=== PATIENT | female | born 1960 | race Caucasian/White ===

== ENCOUNTER 2021-01-29 13:50 | Inpatient (IN) | payer BC ==
[~2021-01-29] VITALS: Ht 170.2 cm; Wt 86.3 kg
[2021-01-29] MEDS ORDERED: normal saline 1000ML IV soln IVB ONE (16:35)
[2021-01-29] MEDS ORDERED: ondansetron/PF 4mg/2ml inj IV ONE (16:35)
[2021-01-29] MEDS ORDERED: morphine 4 MG/ML inj SYRINge IV ONE ×2 (16:35→19:20)
[2021-01-29] MEDS ORDERED: iohexol 300mg/ml 100ml inj. ONE (17:47)
[2021-01-29 18:06] LABS: BASOPHILS % (AUTO) 0.2 % (0-1); EOSINOPHILS % (AUTO) 0.3 % (0-6); HEMOGLOBIN 12.6 g/dl (12.0-16.0); LYMPHOCYTES # (AUTO) 0.7 X10'3 (1.1-4.8); LYMPHOCYTES % (AUTO) 8.5 % (21-51); MEAN CORPUSCULAR HEMOGLOBIN 32.3 PG (27.0-31.0); MEAN CORPUSCULAR HGB CONC 34.2 g/dL (33.0-36.5); MEAN CORPUSCULAR VOLUME 94.6 FL (78-98); MEAN PLATELET VOLUME 8.4 FL (7.4-10.4); MONOCYTES # (AUTO) 0.8 X10'3 (0-0.9); NEUTROPHILS # (AUTO) 7.1 X10'3 (1.8-7.7); PARTIAL THROMBOPLASTIN TIME 26 SECONDS (22-32); PLATELET COUNT 285 X10'3 (140-440); RED CELL DISTRIBUTION WIDTH 13.4 % (11.5-14.5); WHITE BLOOD COUNT 8.6 X10'3 (4.5-11.0)
[2021-01-29 18:14] LABS: ALANINE AMINOTRANSFERASE 446 U/L (12-78); ALBUMIN 3.2 G/DL (3.4-5.0); ALBUMIN/GLOBULIN RATIO 0.8 (1.1-1.5); ALKALINE PHOSPHATASE 290 IU/L (46-116); ANION GAP 8 (8-16); ASPARTATE AMINO TRANSFERASE 141 U/L (10-37); BILIRUBIN,TOTAL 3.8 MG/DL (0.1-1.0); BLOOD UREA NITROGEN 13 MG/DL (7-18); BUN/CREATININE RATIO 15.7 (6.6-38.0); CALCIUM 8.4 MG/DL (8.5-10.1); CHLORIDE 106 MMOL/L (99-107); CREATININE 0.83 MG/DL (0.40-0.90); GLUCOSE 103 MG/DL (70-104); LIPASE 997 U/L (73-393); POTASSIUM 3.1 MMOL/L (3.5-5.1); SODIUM 142 MMOL/L (135-145); eGFR 70 ML/MIN
[2021-01-29] MEDS ORDERED: diphenhydrAMINE 50 mg/ml inj IV PRN (19:15)
[2021-01-29] MEDS ORDERED: magnesium hydroxide 30ml (MOM) UD suspension PO PRN (19:15)
[2021-01-29] MEDS ORDERED: acetaminophen 650mg rectal suppository RC PRN (19:15)
[2021-01-29] MEDS ORDERED: magnesium 2GM in 50ml NS 50 ML IV PRN (19:15)
[2021-01-29] MEDS ORDERED: magnesium 4gm in 100ml NS 100 ML IV PRN (19:15)
[2021-01-29] MEDS ORDERED: acetaminophen 325mg tablet PO PRN ×2 (19:15)
[2021-01-29] MEDS ORDERED: magnesium Cl slow-release 64mg tablet PO PRN (19:15)
[2021-01-29] MEDS ORDERED: mag hydrox/Alum hydrox/simeth 30ml oral suspension PO PRN (19:15)
[2021-01-29] MEDS ORDERED: HYDROcodone/acetaminophen 5mg/325mg tablet PO PRN (19:15)
[2021-01-29] MEDS ORDERED: ondansetron/PF 4mg/2ml inj IV PRN (19:15)
[2021-01-29] MEDS ORDERED: bisacodyl 10mg suppository rectal RC PRN (19:15)
[2021-01-29] MEDS ORDERED: morphine 2 MG/ML inj. syringe IV PRN (19:15)
[2021-01-29] MEDS ORDERED: metoclopramide 5 mg/ml inj IV PRN (19:15)
[2021-01-29] MEDS ORDERED: diphenhydrAMINE 25mg capsule PO PRN (19:15)
[2021-01-29] MEDS ORDERED: proCHLORperazine 10 MG/2 ml inj IV ONE (19:20)
[2021-01-29] MEDS: dextrose 5%-normal saline 1,000 ML IV SCH (19:30)
[2021-01-29 19:42] LABS: HEMOGLOBIN A1C 5.3 % (4.5-6.2)
[2021-01-29] MEDS: piperacillin/tazo 3.375gm/50ml 50 ML IV SCH (19:49)
[2021-01-29] MEDS: docusate sod 100mg capsule PO SCH (19:51)
[2021-01-30] VITALS (21 sets, daily range): BP systolic 91–163; BP diastolic 41–73
[2021-01-30] MEDS ORDERED: potassium Cl 40MEQ/1/2NS 520ml 520 ML IV PRN (00:20)
[2021-01-30] MEDS ORDERED: potassium Cl 20 mEq SR tablet PO PRN (00:20)
--- NOTE | 2021-01-30 01:36 | NUR ---
unable to reconcile home meds due to pt not sure the medication dosages etc. Pt agreed to get the info from home tomorrow morning.
[2021-01-30] MEDS: potassium Cl 20 mEq SR tablet PO PRN (01:51)
[2021-01-30] MEDS: dextrose 5%-normal saline 1,000 ML IV SCH ×3 (05:20→15:52)
[2021-01-30 06:06] LABS: BASOPHILS % (AUTO) 0.3 % (0-1); EOSINOPHILS % (AUTO) 0.7 % (0-6); HEMATOCRIT 31.6 % (35.0-45.0); HEMOGLOBIN 11.1 g/dl (12.0-16.0); LYMPHOCYTES # (AUTO) 0.6 X10'3 (1.1-4.8); LYMPHOCYTES % (AUTO) 9.7 % (21-51); MEAN CORPUSCULAR HGB CONC 35.1 g/dL (33.0-36.5); MEAN PLATELET VOLUME 8.2 FL (7.4-10.4); MONOCYTES # (AUTO) 0.6 X10'3 (0-0.9); MONOCYTES % (AUTO) 9.9 % (2-12); NEUTROPHILS # (AUTO) 4.8 X10'3 (1.8-7.7); NEUTROPHILS % (AUTO) 79.4 % (42-75); PLATELET COUNT 251 X10'3 (140-440); RED BLOOD COUNT 3.37 X10'6 (4.20-5.60); RED CELL DISTRIBUTION WIDTH 13.7 % (11.5-14.5); WHITE BLOOD COUNT 6.1 X10'3 (4.5-11.0)
[2021-01-30 06:13] LABS: ALANINE AMINOTRANSFERASE 354 U/L (12-78); ALBUMIN 2.4 G/DL (3.4-5.0); ALBUMIN/GLOBULIN RATIO 0.7 (1.1-1.5); ALKALINE PHOSPHATASE 252 IU/L (46-116); ANION GAP 7 (8-16); ASPARTATE AMINO TRANSFERASE 112 U/L (10-37); BILIRUBIN,TOTAL 3.4 MG/DL (0.1-1.0); BLOOD UREA NITROGEN 12 MG/DL (7-18); BUN/CREATININE RATIO 13.8 (6.6-38.0); CALCIUM 8.3 MG/DL (8.5-10.1); CHLORIDE 109 MMOL/L (99-107); CHOLESTEROL 215 MG/DL (0-200); CREATININE 0.87 MG/DL (0.40-0.90); GLUCOSE 125 MG/DL (70-104); HDL CHOLESTEROL 34 MG/DL (35-60); MAGNESIUM 2.1 MG/DL (1.5-2.4); POTASSIUM 3.5 MMOL/L (3.5-5.1); SODIUM 144 MMOL/L (135-145); eGFR 66 ML/MIN
[2021-01-30 06:14] LABS: CHOL/HDL RATIO 6.3 (0.00-4.99); LDL CHOLESTEROL 147 MG/DL (50-100); TRIGLYCERIDES 80 MG/DL (20-135)
[2021-01-30] MEDS: docusate sod 100mg capsule PO SCH ×2 (08:00→19:56)
[2021-01-30] MEDS ORDERED: MIDAZolam 1 MG/ML 5ML VIAL ONE ×2 (08:50)
[2021-01-30] MEDS ORDERED: fentaNYL/PF 50MCG/1 ML 2ML syringe ONE (08:50)
[2021-01-30] MEDS ORDERED: LIDOcaine Viscous 15ml cup ONE (08:50)
[2021-01-30] MEDS ORDERED: iohexol 300 MG/1 ML 50ml polymer ONE (08:51)
[2021-01-30] MEDS ORDERED: glucagon, human recombinant 1mg kit ONE (08:51)
[2021-01-30] MEDS: piperacillin/tazo 3.375gm/50ml 50 ML IV SCH ×3 (09:30→15:52)
--- NOTE | 2021-01-30 09:40 | NUR ---
Pt. taken off floor to GI lab.
[2021-01-30] MEDS ORDERED: PROM25TA14 PO (10:12)
[2021-01-30] MEDS ORDERED: SERT50TA PO (10:12)
[2021-01-30] MEDS ORDERED: SUMA100T16 PO (10:12)
[2021-01-30] MEDS ORDERED: LEVO25TA7 PO (10:12)
[2021-01-30] MEDS ORDERED: proCHLORperazine 10 MG/2 ml inj ONE (10:53)
[2021-01-30 15:54] LABS: UA COLLECTION TYPE CLN CATCH MIDSTREAM
[2021-01-30 15:55] LABS: CLARITY,URINE SLIGHTLY CLOUDY (Clear); COLOR,URINE DARK YELLOW (Yellow); PROTEIN,URINE NEGATIVE (Neg)
[2021-01-30 15:56] LABS: GLUCOSE, URINE NEGATIVE (Neg); KETONES,URINE NEGATIVE (Neg); NITRITES, URINE NEGATIVE (Neg); OCCULT BLOOD,URINE SMALL (Neg)
[2021-01-30 15:57] LABS: LEUKOCYTE ESTERASE ,URINE TRACE (Neg)
[2021-01-30 16:23] LABS: RBC,URINE 0-2 /HPF (0-2); WBC,URINE 0-4 /HPF (0-4)
[2021-01-30 16:24] LABS: BACTERIA,URINE 1+ /HPF (Neg); MUCUS STRANDS FEW /LPF (Neg); SQUAMOUS EPITHELIAL CELL,UR MODERATE /LPF (FEW)
[2021-01-30] MEDS ORDERED: SUMAtriptan 25 MG tablet PO PRN (16:45)
[2021-01-30] MEDS ORDERED: pantoprazole 40 MG vial IV ONE (16:45)
[2021-01-30] MEDS ORDERED: proMETHazine 25mg tablet PO PRN (16:45)
[2021-01-30] MEDS: morphine 2 MG/ML inj. syringe IV PRN (17:41)
--- NOTE | 2021-01-30 18:28 | NUR ---
Gave report to Yamilka GONZALES.
[2021-01-30] MEDS: heparin, porcine 5000 units/ml vial SQ SCH (20:02)
[2021-01-31] VITALS: BP 130/62
[2021-01-31] MEDS: piperacillin/tazo 3.375gm/50ml 50 ML IV SCH ×3 (00:30→17:15)
[2021-01-31] MEDS: dextrose 5%-normal saline 1,000 ML IV SCH ×4 (03:28→22:37)
--- NOTE | 2021-01-31 06:31 | NUR ---
Report given to Aleah hayes .
[2021-01-31 07:16] VITALS: BP 149/73
[2021-01-31 07:32] LABS: BASOPHILS % (AUTO) 0.3 % (0-1); EOSINOPHILS % (AUTO) 0.5 % (0-6); HEMATOCRIT 34.4 % (35.0-45.0); HEMOGLOBIN 11.7 g/dl (12.0-16.0); LYMPHOCYTES # (AUTO) 0.5 X10'3 (1.1-4.8); LYMPHOCYTES % (AUTO) 10.4 % (21-51); MEAN CORPUSCULAR HEMOGLOBIN 32.4 PG (27.0-31.0); MEAN CORPUSCULAR HGB CONC 34.1 g/dL (33.0-36.5); MEAN CORPUSCULAR VOLUME 95.1 FL (78-98); MEAN PLATELET VOLUME 8.4 FL (7.4-10.4); MONOCYTES # (AUTO) 0.5 X10'3 (0-0.9); MONOCYTES % (AUTO) 10.2 % (2-12); NEUTROPHILS # (AUTO) 3.7 X10'3 (1.8-7.7); NEUTROPHILS % (AUTO) 78.6 % (42-75); PLATELET COUNT 289 X10'3 (140-440); RED BLOOD COUNT 3.62 X10'6 (4.20-5.60); RED CELL DISTRIBUTION WIDTH 13.9 % (11.5-14.5); WHITE BLOOD COUNT 4.7 X10'3 (4.5-11.0)
[2021-01-31 07:48] LABS: ALANINE AMINOTRANSFERASE 271 U/L (12-78); ALBUMIN 2.6 G/DL (3.4-5.0); ALBUMIN/GLOBULIN RATIO 0.7 (1.1-1.5); ALKALINE PHOSPHATASE 291 IU/L (46-116); ANION GAP 6 (8-16); ASPARTATE AMINO TRANSFERASE 63 U/L (10-37); BILIRUBIN,TOTAL 3.1 MG/DL (0.1-1.0); BLOOD UREA NITROGEN 5 MG/DL (7-18); BUN/CREATININE RATIO 6.9 (6.6-38.0); CALCIUM 8.9 MG/DL (8.5-10.1); CHLORIDE 110 MMOL/L (99-107); CREATININE 0.72 MG/DL (0.40-0.90); GLUCOSE 151 MG/DL (70-104); LIPASE 452 U/L (73-393); MAGNESIUM 2.4 MG/DL (1.5-2.4); PHOSPHORUS 2.5 MG/DL (2.3-4.5); POTASSIUM 3.6 MMOL/L (3.5-5.1); SODIUM 146 MMOL/L (135-145); TOTAL CARBON DIOXIDE 30.3 MMOL/L (24-32); TOTAL PROTEIN 6.6 G/DL (6.4-8.2); eGFR 83 ML/MIN
[2021-01-31] MEDS: sertraline 50mg tablet PO SCH (08:11)
[2021-01-31] MEDS: levoTHYROXINE 25mcg tablet PO SCH (08:11)
[2021-01-31] MEDS: docusate sod 100mg capsule PO SCH ×2 (08:11→20:46)
[2021-01-31] MEDS: pantoprazole 40 MG vial IV SCH (08:12)
[2021-01-31] MEDS: heparin, porcine 5000 units/ml vial SQ SCH ×2 (08:23→20:47)
[2021-01-31] MEDS: morphine 2 MG/ML inj. syringe IV PRN (11:22)
[2021-01-31 11:33] VITALS: BP 126/53
[2021-01-31 11:36] VITALS: BP 155/72
[2021-01-31] MEDS: HYDROcodone/acetaminophen 10/325mg tab PO PRN ×2 (17:16→22:35)
[2021-01-31 18:00] VITALS: BP 153/67
--- NOTE | 2021-01-31 18:27 | NUR ---
Patient in room [facility]. I have received report from Aleah GONZALES and had the opportunity to ask questions and assume patient care.
--- NOTE | 2021-01-31 18:37 | NUR ---
Gave report to Carol GONZALES.
--- NOTE | 2021-01-31 18:40 | NUR ---
Received report from Aleah GONZALES.
[2021-02-01] VITALS: BP 157/83
[2021-02-01] MEDS: piperacillin/tazo 3.375gm/50ml 50 ML IV SCH ×2 (00:41→08:02)
[2021-02-01] MEDS: HYDROcodone/acetaminophen 10/325mg tab PO PRN (05:06)
[2021-02-01 06:39] LABS: ALANINE AMINOTRANSFERASE 198 U/L (12-78); ALBUMIN 2.5 G/DL (3.4-5.0); ALBUMIN/GLOBULIN RATIO 0.6 (1.1-1.5); ALKALINE PHOSPHATASE 275 IU/L (46-116); ANION GAP 7 (8-16); ASPARTATE AMINO TRANSFERASE 37 U/L (10-37); BILIRUBIN,TOTAL 3.7 MG/DL (0.1-1.0); BLOOD UREA NITROGEN 4 MG/DL (7-18); BUN/CREATININE RATIO 5.3 (6.6-38.0); CALCIUM 8.8 MG/DL (8.5-10.1); CHLORIDE 106 MMOL/L (99-107); CREATININE 0.76 MG/DL (0.40-0.90); GLUCOSE 102 MG/DL (70-104); MAGNESIUM 2.2 MG/DL (1.5-2.4); PHOSPHORUS 3.5 MG/DL (2.3-4.5); POTASSIUM 3.1 MMOL/L (3.5-5.1); SODIUM 144 MMOL/L (135-145); TOTAL CARBON DIOXIDE 30.6 MMOL/L (24-32); TOTAL PROTEIN 6.5 G/DL (6.4-8.2); eGFR 78 ML/MIN
[2021-02-01 06:43] LABS: BASOPHILS % (AUTO) 0.3 % (0-1); EOSINOPHILS # (AUTO) 0.1 X10'3 (0-0.9); HEMATOCRIT 32.3 % (35.0-45.0); LYMPHOCYTES # (AUTO) 0.6 X10'3 (1.1-4.8); LYMPHOCYTES % (AUTO) 11.9 % (21-51); MEAN CORPUSCULAR HEMOGLOBIN 32.3 PG (27.0-31.0); MEAN PLATELET VOLUME 8.6 FL (7.4-10.4); MONOCYTES # (AUTO) 0.6 X10'3 (0-0.9); MONOCYTES % (AUTO) 12.3 % (2-12); NEUTROPHILS # (AUTO) 3.9 X10'3 (1.8-7.7); NEUTROPHILS % (AUTO) 74.5 % (42-75); PLATELET COUNT 329 X10'3 (140-440); RED CELL DISTRIBUTION WIDTH 13.8 % (11.5-14.5); WHITE BLOOD COUNT 5.3 X10'3 (4.5-11.0)
--- NOTE | 2021-02-01 06:45 | NUR ---
Problems reprioritized. Patient report given, questions answered & plan of care reviewed with Elle GONZALES.
[2021-02-01 07:00] VITALS: BP 148/72
[2021-02-01] MEDS: morphine 2 MG/ML inj. syringe IV PRN ×2 (07:57→12:01)
[2021-02-01] MEDS: pantoprazole 40 MG vial IV SCH (07:59)
[2021-02-01] MEDS: potassium Cl 20 mEq SR tablet PO PRN (07:59)
[2021-02-01] MEDS: docusate sod 100mg capsule PO SCH (08:00)
[2021-02-01] MEDS: sertraline 50mg tablet PO SCH (08:00)
[2021-02-01] MEDS: levoTHYROXINE 25mcg tablet PO SCH (08:00)
[2021-02-01] MEDS: heparin, porcine 5000 units/ml vial SQ SCH (08:01)
[2021-02-01 11:29] VITALS: BP 156/79
== END 2021-02-01 15:21 | disposition short-term general hospital (02) | DRG 444 ==
LOC: ER 13:51 → EDSEX 13:51 → ED HOLD 19:12 → SUR 3N 01-30 00:15
PROVIDERS: ADMIT Family Medicine; ATTEND Family Medicine
PROC: BW211ZZ Computerized Tomography (CT Scan) of Abdomen and Pelvis using Low Osmolar Contrast (ICD-10-PCS; 2021-01-29)
PROC: 0FBC8ZX Excision of Ampulla of Vater, Via Natural or Artificial Opening Endoscopic, Diagnostic (ICD-10-PCS; principal; 2021-01-30)
DX: K83.1 Obstruction of bile duct (principal); K85.90 Acute pancreatitis without necrosis or infection, unspecified; E87.0 Hyperosmolality and hypernatremia; K83.09 Other cholangitis; D72.829 Elevated white blood cell count, unspecified; E03.9 Hypothyroidism, unspecified; G43.909 Migraine, unspecified, not intractable, without status migrainosus; M54.50 Low back pain, unspecified; Z20.822 Contact with and (suspected) exposure to COVID-19; R74.01 Elevation of levels of liver transaminase levels; E87.6 Hypokalemia; F32.A Depression, unspecified; K21.9 Gastro-esophageal reflux disease without esophagitis; Z80.1 Family history of malignant neoplasm of trachea, bronchus and lung; Z82.49 Family history of ischemic heart disease and other diseases of the circulatory system; Z83.3 Family history of diabetes mellitus; Z90.49 Acquired absence of other specified parts of digestive tract
CPT/HCPCS: 36415; 43261; 74177; 80053; 80061; 81001; 83036; 83605; 83690; 83735; 84100; 84145; 84443; 85025; 85610; 85730; 86885; 86900; 86901; 87040; 87088; 87635; 93005; 96361; 96374; 99152; 99153; 99285; A4620; C1769; C9113; G0378; J0780; J1610; J1644; J2250; J2270; J2405; J2543; J3010; J7030; J7040; J7042; Q9967